=== PATIENT | female | born 1940 | race Two or more races ===

== ENCOUNTER 2024-03-28 12:38 | Emergency (ER) | payer MEDICARE, SELFPAY ==
[2024-03-28 13:17] VITALS: PULSE 76; RESP 18; TEMP 36.4; O2SAT 99; BMI 25.6
--- NOTE | 2024-03-28 13:18 | XR_ITS ---
Examination: CT brain head without contrast. 2-D sagittal coronal reconstructions Date and time of exam:March 28, 2024 1334 hours INDICATIONS: Patient fell today with injury to the head, head pain COMPARISON: August 14, 2023 CTDI: vol (mGy):45.4 DLP: (mGycm):974 Technique: Multiple CT axial sections of the brain have been obtained, 5 mm slice thickness. Contrast has not been administered. 2-D sagittal, coronal reconstructions have been obtained Low dose protocols were performed. One or more of the following dose reduction techniques were used; automated exposure control, adjustment of the mA and/or KV according to patient size, use of iterative reconstruction technique. Findings: No significant ventricular enlargement. Left frontal scalp swelling Intra-axial or extra-axial hemorrhage density is not seen. No mass effect or midline shift Basal cisterns are not remarkable. Fourth ventricle is midline. Suspicious for fracture left frontal bone, axial image 29 Impression: Negative for acute hemorrhage, mass effect or midline shift Suspicious for nondisplaced fracture left frontal bone axial image
--- NOTE | 2024-03-28 13:18 | XR_ITS ---
Examination: Knee, left , 3 views Technique: Knee AP, lateral, oblique 3 views Date and time of exam: March 28, 2024 1344 hours INDICATIONS: Patient fell today with injury to the knee, knee pain. FINDINGS: Prominent osteopenia Status post operative reduction internal fixation fracture distal femur Acute fracture upper third of the patella without significant displacement, fracture line extending from posterior to anterior IMPRESSION: Acute nondisplaced patellar fracture
--- NOTE | 2024-03-28 14:12 | PD.EDRME ---
Rapid Medical Screening Exam RME Arrival date/time: 03/28/24 12:38 83-year-old female presents emerged department complaints of trip and fall today patient reports left-sided head pain, left knee pain Chief Complaint: Fall Time Seen by Provider: 03/28/24 13:18 Vital signs: Vital Signs Temperature 97.6 F 03/28/24 13:17 Pulse Rate 76 03/28/24 13:17 Respiratory Rate 18 03/28/24 13:17 Pulse Oximetry (%) 99 03/28/24 13:17 Oxygen Delivery Method Room Air 03/28/24 13:17
[2024-03-28 14:20] VITALS: BP 153/70; PULSE 66; RESP 17; TEMP 36.6; O2SAT 98
--- NOTE | 2024-03-28 14:44 | EDNOTE_ITS ---
ED Fall Injury RME/HPI General Chief Complaint: Fall Stated Complaint: fall on her face this morning Time Seen by Provider: 03/28/24 13:18 Arrival date/time: 03/28/24 12:38 Limitations: no limitations RME / HPI RME / HPI Narrative: 03/28/24 12:38 83-year-old female presents emerged department complaints of trip and fall today patient reports left-sided head pain, left knee pain DR. DODD MAIN ED EVALUATION: 83 year old female with history of hypertension, diabetes, and s/p total right knee replacement 2 years ago presents to the ED for evaluation after fall today. States she was walking in a parking lot when she tripped over the wheel stopper and fell forward, landing on her knees and striking her right arm and forehead on asphalt. Immediately followed by pain to her right knee, right hand, and forehead. Denies losing consciousness. Denies pain to her neck/back/shoulders/abdomen/hips. Related Data Previous Rx's ?Medication ?Instructions ?Recorded acetaminophen 325 mg tablet (Mapap 650 mg (2 x 325 mg) PO Q6H PRN 03/05/20 (acetaminophen)) Fever >101.5 #30 tabs alprazolam 0.25 mg tablet 0.5 mg (2 x 0.25 mg) PO HS #10 tabs 03/05/20 docusate sodium 100 mg capsule 100 mg PO QDAY PRN Constipation 03/05/20 #30 caps famotidine 20 mg tablet 20 mg PO BID #30 tabs 03/05/20 insulin glargine 100 unit/mL 25 unit (0.25 mL) subcut HS #3 mL 03/05/20 subcutaneous solution (Lantus U-100 Insulin) insulin regular human 100 unit/mL 0 unit (0 mL) subcut ACHS #3 mL 03/05/20 injection solution (Novolin R Regular U-100 Insulin) lisinopril 2.5 mg tablet 10 mg (4 x 2.5 mg) PO DAILY #30 03/05/20 tabs lovastatin 20 mg tablet 20 mg PO DAILY@1730 #30 tabs 03/05/20 rivaroxaban 10 mg tablet (Xarelto) 10 mg PO Q24H #10 tabs 03/05/20 sertraline 25 mg tablet 100 mg (4 x 25 mg) PO DAILY #30 03/05/20 tabs acetaminophen 325 mg capsule 650 mg (2 x 325 mg) PO QID 5 days 03/28/24 #40 caps Allergies Allergy/AdvReac Type Severity Reaction Status Date / Time No Known Allergies Allergy Verified 03/28/24 12:39 Review of Systems Review of Systems Narrative Review of Systems: GEN: No fever, no chills, no weight loss EYES: No discharge, no visual changes, no pain HEENT: +head injury. No ear pain, no congestion, no sore throat PULM: No shortness of breath, no cough, no congestion CV: No chest pain, no dyspnea on exertion, no palpitations GI: No nausea, no vomiting, no diarrhea, no pain, no constipation : No frequency, no urgency, no dysuria MUSC/SKEL: +right hand and right knee pain, no back pain SKIN: No rash NEURO: No weakness, no headache Past Medical History Past Medical History CARDIAC: Positive Hypertension REPRODUCTIVE: Positive Previous Pregnancies ENDOCRINE: Positive Diabetes Mellitus Type 2 OTHER HISTORY: Positive Falls Social History SMOKING STATUS: Never smoker ED Exam General Limitations: Present no limitations General appearance: Present alert and in no apparent distress Head Head exam: Present other (Small 1 cm laceration just above the left eyebrow, closed with skin glue. ) Eye Eye exam: Present normal appearance, PERRL and EOMI ENT ENT exam: Present normal exam, normal oropharynx and mucous membranes moist Neck Neck exam: Present normal inspection, full ROM and trachea midline Chest Chest inspection: Present normal inspection and symmetric chest wall rise Respiratory Respiratory exam: Present normal lung sounds bilaterally Cardiovascular Cardiovascular exam: Present regular rate, normal rhythm and normal heart sounds Abdominal Exam Abdominal exam: Present soft and normal bowel sounds Extremities Exam Extremities exam: Present normal inspection, full ROM and other (Able to palpate the right patella without any tenderness) Back Exam Back exam: Present normal inspection and full ROM Neurological Exam Neurological exam: Present alert, oriented X3 and CN II-XII intact Psychiatric Psychiatric exam: Present normal affect and normal mood Skin Skin exam: Present warm, dry, intact and normal color Course Quality Measures none Orders Category Date Time Status Miscellaneous Nursing Order NOW Care 03/28/24 14:43 Completed Wound Care NOW Care 03/28/24 13:[address] head/brain wo con Stat Exams 03/28/24 13:18 Completed XR knee LT 3V Stat Exams 03/28/24 13:18 Completed Acetaminophen Tab [Tylenol ES Tab] Med 03/28/24 14:45 Discontinued 500 mg PO X1 ONE HYDROcodone*/APAP 5/325 [[place] 5/325] Med 03/28/24 14:45 Discontinued 1 tab PO X1 ONE Ibuprofen Tab [Motrin Tab] Med 03/28/24 14:45 Discontinued 400 mg PO X1 ONE Tet,Diphth,Pertuss(Acell)-Tdap [Boostrix Vacc] Med 03/28/24 13:18 Discontinued 0.5 ml IMI .ONCE ONE Reevaluation(s) Reevaluation #1: Patient remains clinically stable throughout the emergency department visit. We reviewed all the results, analysis, and treatment plans. Patient is amenable to discharge. Strict return precautions were outlined. Patient was discharged in stable condition. Time: 15:10 Vital Signs Vital signs: Vital Signs Temperature 97.6 F 03/28/24 13:17 Pulse Rate 76 03/28/24 13:17 Respiratory Rate 18 03/28/24 13:17 Pulse Oximetry (%) 99 03/28/24 13:17 Oxygen Delivery Method Room Air 03/28/24 13:17 Pulse ox is 99% on room air which is adequate. Fall MDM Narrative MDM Narrative:: IKathleen am scribing for and in the presence of Dr. Dodd. Patient data External records reviewed:: [facility] previous records (I reviewed admission from 03/01/2020 through 03/09/2020) Clinical information provided by:: patient and family (Daughter ) Social determinants that could affect healthcare access:: none Patient has the following chronic illnesses:: hypertension, diabetes, and s/p total right knee replacement 2 years ago How is presenting disease/condition affected by chronic disease/condition?: exacerbated by Evaluation data The following diagnostics were reviewed and interpreted by me:: lab results and radiology exam(s) Lab and/or radiology exams considered but not ordered:: None Interpretation Summary: Ordering Physician: Katrina SAHA)Liban NP Date of Service: 03/28/24 Procedure(s): CT head/brain wo con Accession Number(s): [id number] cc: Katrina SAHA)Liban NP; Dante Guzman MD~ Examination: CT brain head without contrast. 2-D sagittal coronal reconstructions Date and time of exam:March 28, 2024 1334 hours INDICATIONS: Patient fell today with injury to the head, head pain COMPARISON: August 14, 2023 CTDI: vol (mGy):45.4 DLP: (mGycm):974 Technique: Multiple CT axial sections of the brain have been obtained, 5 mm slice thickness. Contrast has not been administered. 2-D sagittal, coronal reconstructions have been obtained Low dose protocols were performed. One or more of the following dose reduction techniques were used; automated exposure control, adjustment of the mA and/or KV according to patient size, use of iterative reconstruction technique. Findings: No significant ventricular enlargement. Left frontal scalp swelling Intra-axial or extra-axial hemorrhage density is not seen. No mass effect or midline shift Basal cisterns are not remarkable. Fourth ventricle is midline. Suspicious for fracture left frontal bone, axial image 29 Impression: Negative for acute hemorrhage, mass effect or midline shift Suspicious for nondisplaced fracture left frontal bone axial image Dictated By: Dante Guzman MD Signed By: <Electronically signed by Dante Guzman MD in [place]> 03/28/24 1351 ==== Ordering Physician: Liban Herndon NP, NP Date of Service: 03/28/24 Procedure(s): XR knee LT 3V Accession Number(s): [id number] cc: Liban Herndon NP, NP; Hari Mccarty MD; Dante Guzman MD~ Examination: Knee, left , 3 views Technique: Knee AP, lateral, oblique 3 views Date and time of exam: March 28, 2024 1344 hours INDICATIONS: Patient fell today with injury to the knee, knee pain. FINDINGS: Prominent osteopenia Status post operative reduction internal fixation fracture distal femur Acute fracture upper third of the patella without significant displacement, fracture line extending from posterior to anterior IMPRESSION: Acute nondisplaced patellar fracture Dictated By: Dante Guzman MD Signed By: <Electronically signed by Dante Guzman MD in [place]> 12/06/24 7519 Medications / Prescriptions Medications or Prescriptions considered but not ordered:: None Medication administrations:: Medication Administration History Discontinued Medications Acetaminophen (Acetaminophen 500 Mg Tablet) 500 mg PO X1 ONE Stop: 03/28/24 14:46 Last Admin: 03/28/24 14:56 Dose: 500 mg Documented By: JOSE A Hydrocodone Bitart/Acetaminophen (Hydrocodone/Apap 5/325 Tablet) 1 tab PO X1 ONE Stop: 03/28/24 14:46 Last Admin: 03/28/24 14:55 Dose: 1 tab Documented By: JOSE A Diphtheria/Tetanus/Acell Pertussis (Diphth,Pertuss(Acell),Tet Vac 0.5 Ml Vial) 0.5 ml IMi .ONCE ONE Stop: 03/28/24 13:19 Last Admin: 03/28/24 14:56 Dose: 0.5 ml Documented By: JOSE A Ibuprofen (Ibuprofen Tab 400 Mg Tablet) 400 mg PO X1 ONE Stop: 03/28/24 14:46 Last Admin: 03/28/24 14:56 Dose: 400 mg Documented By: JOSE A See above Consultations Consultation(s) initiated? (list below): No Diagnosis Fall Differential Diagnosis: syncope, fracture of wrist and other (Laceration, abrasion, knee dislocation ) Most likely diagnosis given after review of the tests above:: Fall Fall on sidewalk Laceration of face Admission Indicated Admission indicated?: not indicated Admission Request Was there a request for admission?: No Disposition Plan Disposition Plan: Discharge Discharge Attestation Discharge Attestation: The patient and all family members were given an opportunity to ask questions and understood the discharge instructions. Discharge instructions specifically effects, indications for sooner follow up or return to the emergency department, and the expected course of current diagnosis. Patient condition: Stable Discharge Plan Plan Patient Disposition: HOME (Self Care) Disposition Comment: Stable for discharge Patient condition on transfer: Stable Prescriptions/Referrals Prescriptions/Med Rec: New acetaminophen 325 mg capsule 650 mg PO QID 5 Days Qty: 40 0RF No Action Lantus U-100 Insulin 100 unit/mL Solution 25 unit subcut HS Qty: 3 0RF alprazolam 0.25 mg Tablet 0.5 mg PO HS Qty: 10 0RF famotidine 20 mg Tablet 20 mg PO BID Qty: 30 0RF Novolin R Regular U100 Insulin 100 unit/mL Solution 0 unit subcut ACHS Qty: 3 0RF docusate sodium 100 mg Capsule 100 mg PO QDAY PRN (Reason: Constipation) Qty: 30 0RF sertraline 25 mg Tablet 100 mg PO DAILY Qty: 30 0RF lovastatin 20 mg Tablet 20 mg PO DAILY@1730 Qty: 30 0RF lisinopril 2.5 mg Tablet 10 mg PO DAILY Qty: 30 0RF Xarelto 10 mg Tablet 10 mg PO Q24H Qty: 10 0RF acetaminophen [Mapap (acetaminophen)] 325 mg Tablet 650 mg PO Q6H PRN (Reason: Fever >101.5) Qty: 30 0RF Referrals: Hari Mccarty MD [Primary Care Provider] - In 1 week Problem List Clinical Impression: Fall, Fall (on)(from) sidewalk curb, initial encounter, Laceration of face Patient/Caregiver Discharge Instructions Discharge Activity: activity as tolerated Education Materials: Preventing Falls Moving Safely ..., Preventing Falls How to ..., ED Laceration, Face: Skin Glue Additional Instructions: You should be very careful. Make sure that you use your walker or one of your canes when you are walking around with your daughter. Please follow-up with your primary care doctor within the next several days If you experience any worsening whatsoever please come back to the emergency department right away and we will take care of you We used skin adhesive on the laceration just above your left eyebrow. This will dry up and flake off after about 7 days. You should not get this glue wet in between now and then because it will come off and your wound will open. Print Language: Armenian Stand Alone Forms: Jeanette Award Info., Patient Portal Info Letter
[2024-03-28] MEDS: HYDROcodone/APAP 5/325 TABLET 1 TAB PO (14:55)
[2024-03-28] MEDS: IBUPROFEN TAB 400 MG TABLET PO (14:56)
[2024-03-28] MEDS: ACETAMINOPHEN 500 MG TABLET PO (14:56)
[2024-03-28] MEDS: DIPHTH,PERTUSS(ACELL),TET VAC 0.5 ML VIAL IMi (14:56)
[2024-03-28 15:09] VITALS: BP 135/60; PULSE 65; RESP 18; TEMP 36.6; O2SAT 99
== END 2024-03-28 15:11 | disposition home or self-care (01) ==
PROVIDERS: Emergency Provider Emergency Medicine; PCP Family Medicine
DX: S01.81XA Laceration without foreign body of other part of head, initial encounter (principal); S82.002A Unspecified fracture of left patella, initial encounter for closed fracture; Y93.01 Activity, walking, marching and hiking; W01.0XXA Fall on same level from slipping, tripping and stumbling without subsequent striking against object, initial encounter; Y92.481 Parking lot as the place of occurrence of the external cause; Z23 Encounter for immunization
CPT/HCPCS: 70450; 73562; 90471; 90715; 99284; A9270

== ENCOUNTER → 2024-07-30 | Outpatient (CLI) | payer MEDICARE, SELFPAY ==
[2024-07-30 08:33] LABS: Basophils % (Auto) 1 % (0-2.5); Eosinophils # (Auto) 0.2 Thou/mm3 (0.0-0.5); Eosinophils % (Auto) 2 % (0-10); Hematocrit 32.1 % (36.0-46.0); Hemoglobin 10.4 g/dL (12.0-16.0); Immature Granulocytes % (Auto) 0 % (0-0); Immature Granulocytes Auto 0.03 Thou/mm3 (0.00-0.00); Lymphocytes # (Auto) 1.7 Thou/mm3 (1.0-4.8); Lymphocytes % (Auto) 24 % (10-50); Mean Corpuscular HGB Conc 32.4 g/dl (31.0-37.0); Mean Corpuscular Hemoglobin 27.6 pg (25.0-35.0); Mean Corpuscular Volume 85 fL (80-100); Monocytes # (Auto) 0.5 Thou/mm3 (0.0-0.8); Monocytes % (Auto) 6 % (0-12); Neutrophils # (Auto) 4.9 Thou/mm3 (1.8-7.7); Neutrophils % (Auto) 67 % (37-80); Nucleated Red Blood Cell % 0 /100 WBC (0); Platelet Count 298 Thou/mm3 (140-440); RDW Standard Deviation 44.2 fL (36.4-46.3); Red Blood Count 3.77 Miln/mm3 (4.00-5.20); White Blood Count 7.2 Thou/mm3 (3.6-11.0)
[2024-07-30 08:49] LABS: Glucose Estimated Average 146 mg/dL (80-131); Hemoglobin A1C 6.7 % Hgb (4.8-6.0)
[2024-07-30 08:58] LABS: Albumin, Serum 4.4 gm/dL (3.4-4.8); Albumin/Globulin Ratio 1.5 (1.2-2.2); Alkaline Phosphatase 92 U/L (46-116); Anion Gap 9 (7-16); Aspartate Amino Transferase 18 U/L (0-34); BUN/Creatinine Ratio 26 Ratio (12-20); Bilirubin,Total 0.3 mg/dL (0.3-1.2); Blood Urea Nitrogen 26 mg/dL (9-23); Calcium 9.4 mg/dL (8.3-10.6); Calcium (Corrected) 9.4 mg/dL (8.5-10.1); Carbon Dioxide 20.9 mMol/L (20.0-31.0); Cardiac Risk Estimate 2.1 RATIO (3.7-5.6); Chloride 113 mMol/L (98-107); Cholesterol 158 mg/dL (132-200); Glucose 93 mg/dL (74-106); HDL Cholesterol 74 mg/dL (40-60); LDL Cholesterol,Calculated 68 mg/dL (0-130); Osmolality,Calculated 289 (275-295); Potassium 5.5 mMol/L (3.4-5.1); Sodium 143 mMol/L (136-145); Total Protein 7.4 gm/dL (5.7-8.2); Triglycerides 82 mg/dL (30-150); eGFR 56 See Note
[2024-07-30 09:14] LABS: Alanine Aminotransferase 10 U/L (10-49)
[2024-07-30 09:43] LABS: Creatinine MALB Rnd Ur 134 mg/dL (30-125); Microalbumin Creat Ratio 22 mg/gCrea (<30); Microalbumin, Random Urine 29 mg/L (0-300)
== END | disposition home or self-care (01) ==
LOC: COPL 07:54
PROVIDERS: PCP Family Medicine; Referring Provider Family Medicine; Visit Provider Family Medicine
DX: E11.9 Type 2 diabetes mellitus without complications (principal)
CPT/HCPCS: 36415; 80053; 80061; 82043; 82570; 83036; 84443; 85025